=== PATIENT | female | born 1985 ===

== ENCOUNTER 2019-04-15 18:42 | Inpatient (IN) | payer OTHER ==
[~2019-04-15] VITALS: Ht 170.2 cm; Wt 104.5 kg
[2019-04-15] VITALS (17 sets, daily range): BP systolic 139–171; BP diastolic 68–104; PULSE 71–101; TEMP 98.6–98.9
--- NOTE | 2019-04-15 18:50 | NUR ---
at 38 weeks and 3 days arrives to unit with complaint of rupture of membranes. Pt states she had a large gush of clear fluid around 1750 tonight. Reports feeling occasional tightening, good movement, and denies vaginal bleeding. Pt oriented to room, clean gown on, bed in low and locked position. US and toco explained and applied. Plan of care reviewed with patient and spouse. Pt denies headaches, blurry vision, or RUQ pain. Pts abdomen, arms, and legs are covered in PUPPPS rash, pt reports no itching at this time. Amnitrace positive. SVE /-2. Dr. Reed notified.
[2019-04-15] MEDS ORDERED: PRENATAL MVI (19:45)
[2019-04-15] MEDS ORDERED: BENADRYL25 M2 PO (19:46)
[2019-04-15] MEDS ORDERED: ZYRTEC5 MG PO (19:46)
[2019-04-15] MEDS ORDERED: ANUSOL HC CREAM30 GM TP (19:47)
--- NOTE | 2019-04-15 20:00 | NUR ---
20 g IV started in right hand with 1 attempt. Admission labs and CMP obtained off IV start. Lactated Ringers infusing to gravity. Consents reviewed and signed with patient and spouse. All questions answered.
[2019-04-15 20:15] LABS: HEMATOCRIT 39.7 % (37.0-47.0); HEMOGLOBIN 13.2 g/dl (12.5-16.0); MEAN CELL VOLUME 92 fl (80.0-100.0); MEAN CORPUSCULAR HEMOGLOBIN 31 pg (27.0-31.0); MEAN CORPUSCULAR HGB CONC 33 g/dl (33.0-37.0); MEAN PLATELET VOLUME 10.3 fl (7.4-10.4); PLATELET COUNT 279 K/mm3 (130-400); REDCELL DISTRIBUTION WIDTH-CV 13.2 % (11.5-14.5)
[2019-04-15 20:28] LABS: ALBUMIN 3.4 gm/dL (3.5-5.0); BILIRUBIN,TOTAL 0.3 mg/dL (0.0-1.0); CALCIUM 8.8 mg/dL (8.4-10.2); CREATININE, serum 0.7 (0.52-1.25); POTASSIUM 4.3 mmol/L (3.4-5.0); TOTAL PROTEIN 6.6 gm/dL (6.4-8.2)
[2019-04-15 20:48] LABS: BAND 3 % (0-10); EOSINOPHIL 4 % (0-4); LYMPHOCYTE 8 % (20.0-51.0); NEUTROPHILS 85 % (42.0-75.2); PLATELET ESTIMATE NORMAL (NORMAL)
[2019-04-15 21:42] LABS: COLLECTION METHOD CLEAN CATCH
[2019-04-15 21:49] LABS: MUCOUS Present /lpf; PH 5 (5-8); URINE APPEARANCE Clear; URINE BACTERIA None Seen /hpf; URINE BILIRUBIN Negative (NEGATIVE); URINE BLOOD 2+ (NEGATIVE); URINE COLOR Yellow; URINE GLUCOSE Negative (NEGATIVE); URINE KETONE Negative (NEGATIVE); URINE LEUKOCYTE ESTERASE Negative (NEGATIVE); URINE NITRATE Negative (NEGATIVE); URINE PROTEIN(semi-quant) 2+ (NEGATIVE); URINE UROBILINOGEN Negative (NEGATIVE)
--- NOTE | 2019-04-15 22:30 | NUR ---
2200 - Pt breathing through contractions well but requesting epidural at this time. Miguel Angel Sarah CRNA notified, will come to bedside. 2217 - SHARRON Aguero at bedside. Pt positioned to sitting on edge of bed. Epidural procedure, risks, and benefits reviewed with patient, verbalized understanding. 2220 - Difficulty tracing FHR due to maternal positioning. 2231 - Test dose by Angel Sarah CRNA. Pt denies any adverse reactions. 2236 - Pt repositioned to left lateral with pillow support. Safety precautions reviewed. Call light within reach. See anesthesia record.
--- NOTE | 2019-04-15 23:40 | NUR ---
Lloyd catheter placed to dependent drainage at this time. Clear, yellow urine returned on insertion. Catheter secured to leg with statlock. SVE /-2. Pt repositioned to right side. Call light within reach. Spouse supportive at bedside.
[2019-04-16] VITALS (40 sets, daily range): BP systolic 119–182; BP diastolic 58–90; PULSE 79–115; TEMP 98.1–100.4
--- NOTE | 2019-04-16 01:20 | NUR ---
SVE 7-//-1. Pt feels warm on exam. Maternal temp 100.4F. Dr. Reed notified, see physician notification.
[2019-04-16 02:01] LABS: HEMOGLOBIN 12.2 g/dl (12.5-16.0); MEAN CELL VOLUME 91 fl (80.0-100.0); MEAN CORPUSCULAR HEMOGLOBIN 31 pg (27.0-31.0); MEAN CORPUSCULAR HGB CONC 34 g/dl (33.0-37.0); MEAN PLATELET VOLUME 10.1 fl (7.4-10.4); PLATELET COUNT 242 K/mm3 (130-400); RED BLOOD COUNT 3.99 M/mm3 (4.10-5.30)
[2019-04-16 02:04] LABS: HEMATOCRIT 36.3 % (37.0-47.0)
[2019-04-16 02:09] LABS: INR 0.9 (0.8-3.0); PROTHROMBIN TIME 10.4 SECONDS (9.7-12.8)
--- NOTE | 2019-04-16 02:10 | NUR ---
Dr. Reed at bedside discussing plan of care with patient and spouse. Antibiotics to be started for chorioamnionitis. Pt and spouse verbalize understanding.
[2019-04-16 02:12] LABS: BILIRUBIN,TOTAL 0.2 mg/dL (0.0-1.0); CALCIUM 8.5 mg/dL (8.4-10.2); CREATININE, serum 0.75 (0.52-1.25); POTASSIUM 4.4 mmol/L (3.4-5.0)
[2019-04-16 02:12] LABS: PARTIAL THROMBOPLASTIN TIME 26.6 SECONDS (26.0-37.0)
[2019-04-16 02:19] LABS: BAND 10 % (0-10); EOSINOPHIL 3 % (0-4); LYMPHOCYTE 4 % (20.0-51.0); METAMYELOCYTE 1 % (0-0); NEUTROPHILS 80 % (42.0-75.2); PLATELET ESTIMATE NORMAL (NORMAL)
--- NOTE | 2019-04-16 02:30 | NUR ---
Dr. Reed at bedside for SVE /+1. Maternal temp 99.7F
--- NOTE | 2019-04-16 04:30 | NUR ---
Dr. Reed at bedside for SVE, complete +2, orders to start pushing. Lloyd catheter removed at this time. Pt positioned into footplates and educated on pushing techniques. Initial push at 0435.
--- NOTE | 2019-04-16 05:30 | NUR ---
Pt pushing well with contractions. Dr. Reed at bedside checking progress.
--- NOTE | 2019-04-16 05:45 | NUR ---
Pt continues to push well with contractions, contractions every 5 minutes at times. Pitocin initiated at 2 mL/hr. 0550 - Late deceleration down to 120 bpm after pushing. Return to baseline of 150 bpm after 120 seconds.
--- NOTE | 2019-04-16 06:10 | NUR ---
Bedside report given to Janine Quan RN.
--- NOTE | 2019-04-16 06:15 | NUR ---
Care of pt assumed by this RN. Introduced to pt. Updated on POC. Begins pushing with this RN. Moves vertex well. Dr. Reed on unit. Reviews FHR strip. Orders for continuous expectant management of labor. 0635-Dr. Reed at bedside. Begins pushing with patient. 0643- of viable female infant attended by Dr. Reed. Nuchal cord x 2. Cord clamped x 2 and cut from umbilicus. dried and placed on mother's abdomen. Care of to Sameer Enriquez RN. 0648- of placenta. Moderate amount of lochia noted. Fundal massage performed and good uterine tone noted. Second degree laceration repaired by Dr. Reed. Cord gasses obtained. Placenta sent to pathology. Pitocin bolus infusing per protocol. Bleeding WNL. Pericare performed. Ice pack applied. Bed locked in low position. Call ilt within reach. No questions or concerns at this time.
[2019-04-17 02:15] VITALS: BP 153/85; PULSE 89; TEMP 98.2
[2019-04-17 06:17] LABS: HEMOGLOBIN 10.3 g/dl (12.5-16.0); MEAN CELL VOLUME 93 fl (80.0-100.0); MEAN CORPUSCULAR HEMOGLOBIN 31 pg (27.0-31.0); MEAN CORPUSCULAR HGB CONC 33 g/dl (33.0-37.0); MEAN PLATELET VOLUME 9.9 fl (7.4-10.4); PLATELET COUNT 214 K/mm3 (130-400); RED BLOOD COUNT 3.33 M/mm3 (4.10-5.30); REDCELL DISTRIBUTION WIDTH-CV 13.4 % (11.5-14.5)
[2019-04-17 06:18] LABS: HEMATOCRIT 30.8 % (37.0-47.0)
--- NOTE | 2019-04-17 06:23 | NUR ---
Pt sleeping. Reports received from off going RNLauren
[2019-04-17 07:22] VITALS: BP 144/83; PULSE 87; TEMP 98.1
[2019-04-17 10:05] LABS: BAND 5 % (0-10); EOSINOPHIL 2 % (0-4); LYMPHOCYTE 11 % (20.0-51.0); NEUTROPHILS 81 % (42.0-75.2)
[2019-04-17 10:09] LABS: PLATELET ESTIMATE NORMAL (NORMAL)
--- NOTE | 2019-04-17 11:43 | NUR ---
Initial visit; Patient and her family thanked [employer] for offering congratulations and God's blessings for the of their baby girl. [employer] thanked them for choosing [facility].
[2019-04-17 16:13] VITALS: BP 158/98; PULSE 77; TEMP 98.3
[2019-04-17 21:00] VITALS: BP 148/75; PULSE 72; TEMP 98.1
[2019-04-18 04:30] VITALS: BP 140/82; PULSE 78; TEMP 98.2
[2019-04-18 09:15] VITALS: BP 169/96; PULSE 88; TEMP 98.4
[2019-04-18 11:45] VITALS: BP 145/81; PULSE 72; TEMP 99.9
[2019-04-18 16:10] VITALS: BP 150/77; PULSE 73; TEMP 98.2
[2019-04-18 20:50] VITALS: BP 150/76; PULSE 83; TEMP 98.2
[2019-04-19] VITALS: BP 134/87; PULSE 79; TEMP 98.6
[2019-04-19] MEDS ORDERED: TRANDATE 200MG200 MG PO (08:32)
[2019-04-19] MEDS ORDERED: IBU600 MG PO (08:33)
[2019-04-19] MEDS ORDERED: MEDROL4 MG PO (08:34)
[2019-04-19 12:43] VITALS: BP 136/72; PULSE 78; TEMP 98.1
== END 2019-04-19 14:05 | disposition home or self-care (01) | DRG 805 ==
LOC: LDRO 18:42 → LDR 18:50 → LDRO 19:28 → OB 19:29 → LDR 19:29 → OB 04-16 09:00 → LDRO 04-26 11:45
PROVIDERS: Obstetrics & Gynecology; ADMIT Student in an Organized Health Care Education/Training Program
PROC: 10E0XZZ Delivery of Products of Conception, External Approach (ICD-10-PCS; principal; 2019-04-16)
PROC: 0KQM0ZZ Repair Perineum Muscle, Open Approach (ICD-10-PCS; 2019-04-16)
DX: O42.92 Full-term premature rupture of membranes, unspecified as to length of time between rupture and onset of labor (principal); O41.1230 Chorioamnionitis, third trimester, not applicable or unspecified; Z37.0 Single live birth; O14.03 Mild to moderate pre-eclampsia, third trimester; O99.214 Obesity complicating childbirth; O36.8330 Maternal care for abnormalities of the fetal heart rate or rhythm, third trimester, not applicable or unspecified; O70.1 Second degree perineal laceration during delivery; O99.89 Other specified diseases and conditions complicating pregnancy, childbirth and the puerperium; H57.02 Anisocoria; Z3A.38 38 weeks gestation of pregnancy
CPT/HCPCS: J0290; J1580; J2590; J7120; J7509